=== PATIENT | female | born 1965 | race Caucasian/White ===

== ENCOUNTER 2020-07-24 00:54 | Outpatient (CLI) | payer BC, SELFPAY ==
[2020-07-24 18:47] LABS: SARS-CoV-2 RNA PCR Negative
== END 2020-07-24 00:55 | disposition home or self-care (01) ==
LOC: ANHCOVIDDT 00:55
PROVIDERS: PCP Internal Medicine; Visit Provider Internal Medicine Gastroenterology
DX: Z01.812 Encounter for preprocedural laboratory examination (principal); Z20.822 Contact with and (suspected) exposure to COVID-19
CPT/HCPCS: C9803; U0003; U0005

== ENCOUNTER 2020-07-28 02:13 | Day surgery (SDC) | payer BC, SELFPAY ==
[2020-07-22 15:28] VITALS: BMI 39.0
[2020-07-28 06:15] VITALS: BP 154/96; PULSE 100; RESP 20; TEMP 36; O2SAT 98; BMI 40.6
[2020-07-28] MEDS: LACTATED RINGERS 1,000 ML 150 ML IV CONT (06:35)
[2020-07-28 06:36] LABS: Glucose Point of Care 155 (65-105)
--- NOTE | 2020-07-28 07:16 | WPDANESEPPF ---
Anes - Initial Pre Proc Eval Procedure: Operation Date: 07/28/20 07:30 Proposed Procedures p Esophagogastroduodenoscopy & Colonoscopy - Mikel Armando MD Date/Time: 07/28/20 07:16 Surgeon: Mikel Armando MD Pre Op Diagnosis: iron deficiency anemia, nausea, vomiting Patient Data Age: 55 Gender: F Height: 5 ft 3 in Weight: 103.9 kg Last Vital Signs Temp 96.8 F L 07/28/20 06:15 Pulse 100 07/28/20 06:15 Resp 20 07/28/20 06:15 BP 154/96 H 07/28/20 06:15 Pulse Ox 98 07/28/20 06:15 Allergies Allergy/AdvReac Type Severity Reaction Status Date / Time No Known Allergies Allergy Unverified 07/28/20 06:15 Home Medications Medication Instructions Recorded Confirmed Type aripiprazole 2 mg PO DAILY 07/22/20 07/22/20 History atorvastatin 20 mg PO DAILY 07/22/20 07/22/20 History cyanocobalamin (vitamin B-12) 1,000 mcg IM [id number] 07/22/20 07/22/20 History estradiol-norethindrone acet 1 tablet PO DAILY 07/22/20 07/22/20 History [Amabelz] levothyroxine 150 mcg PO DAILY 07/22/20 07/22/20 History metformin 500 mg PO TID 07/22/20 07/22/20 History sodium,potassium,mag sulfates See Rx Instructions .ROUTE 07/22/20 Rx [Suprep Bowel Prep Kit] .COMPLEX #1 ml trazodone 100 mg PO DAILY 07/22/20 07/22/20 History venlafaxine 150 mg PO DAILY 07/22/20 07/22/20 History vortioxetine [Trintellix] 10 mg PO DAILY 07/22/20 07/22/20 History Laboratory Tests 07/28/20 06:33 POC Capillary Glucose 155 mg/dl H mg/dl (65-105) Patient hx anesthesia problems: none Family hx anesthesia problems: none PMFSH Past Medical History Medical History (Updated 07/28/20 @ 07:16 by Ole Bowers MD) Hyperlipidemia Hypothyroid Morbid obesity Social History Social History Smoking packs per day: 0.5 Smoking cigarettes per day: 10.0 Smoking status: Former smoker Tobacco type: cigarettes Alcohol intake: current Drinks per week: 1 Substance use: never Substance use type: does not use Living arrangements: with friend(s) Spiritual care concerns: No Anes - Eval Final PreProcedure Day of Procedure 07/28/20 07:16 Patient weight: morbidly obese Heart: regular rate and rhythm Lungs: clear to auscultation Airway: Mallampati scale class III Neurological: alert and oriented Last oral intake: >/= 8 hours ASA classification: III Emergent: no Anesthetic plan: proceed Anesthesia type and monitoring: general GIVS and standard monitoring Informed Consent: The patient's anesthetic plan and its attendant risks and benefits were discussed with the patient/family/POA. Questions were solicited and answers provided to the satisfaction of the patient/family/POA.
--- NOTE | 2020-07-28 07:29 | PM.HPGS ---
History of Present Illness History of Present Illness Consent: Risks, benefits, and alternatives have been discussed and questions answered. Patient agrees to proceed with procedure. Chief complaint: iron deficiency anemia, nausea, vomiting Narrative: Paradise Arrieta is a 55 year old female with nausea and vomiting, also anemia. Never had EGD, had colonoscopy about 2 years ago. Review of Systems Constitutional: Constitutional: Denies headache(s) and Denies weakness Eyes: Eyes: Denies blurry vision ENT: Reports Normal hearing present, Denies headache(s) and Denies neck pain Cardiovascular: Cardiovascular: Denies chest pain and Denies dyspnea Respiratory: Respiratory: Denies dyspnea Gastrointestinal: Gastrointestinal: Reports no additional gastrointestinal complaints Genitourinary: Genitourinary: Denies dysuria Musculoskeletal: Musculoskeletal: Denies neck pain Integumentary/Breasts: Skin/Breast: Denies dry skin Neurologic: Reports Normal hearing present, Denies headache(s) and Denies weakness Psychiatric: Psychiatric: Denies anxiety Endocrine: Endocrine: Denies change in body appearance Hematologic/Lymphatic: Hematologic/Lymphatic: Denies easy bleeding Allergic/Immunologic: Allergic/Immunologic: Denies urticaria PMFSH Past Medical History Medical History (Updated 07/28/20 @ 07:30 by Mikel Armando MD) Anemia Colon cancer screening Hyperlipidemia Hypothyroid Morbid obesity Nausea & vomiting Social History Social History Smoking packs per day: 0.5 Smoking cigarettes per day: 10.0 Smoking status: Former smoker Tobacco type: cigarettes Alcohol intake: current Drinks per week: 1 Substance use: never Substance use type: does not use Living arrangements: with friend(s) Spiritual care concerns: No Meds Home Medications and Allergies Home Medications Medication Instructions Recorded Confirmed Type aripiprazole 2 mg PO DAILY 07/22/20 07/22/20 History atorvastatin 20 mg PO DAILY 07/22/20 07/22/20 History cyanocobalamin (vitamin B-12) 1,000 mcg IM [id number] 07/22/20 07/22/20 History estradiol-norethindrone acet 1 tablet PO DAILY 07/22/20 07/22/20 History [Amabelz] levothyroxine 150 mcg PO DAILY 07/22/20 07/22/20 History metformin 500 mg PO TID 07/22/20 07/22/20 History sodium,potassium,mag sulfates See Rx Instructions .ROUTE 07/22/20 Rx [Suprep Bowel Prep Kit] .COMPLEX #1 ml trazodone 100 mg PO DAILY 07/22/20 07/22/20 History venlafaxine 150 mg PO DAILY 07/22/20 07/22/20 History vortioxetine [Trintellix] 10 mg PO DAILY 07/22/20 07/22/20 History Allergies Allergy/AdvReac Type Severity Reaction Status Date / Time No Known Allergies Allergy Unverified 07/28/20 06:15 Vital Signs Vital Signs - 24 hr 07/28/20 06:15 Temperature 96.8 F L Pulse Rate 100 Respiratory Rate 20 Blood Pressure 154/96 H Pulse Oximetry 98 Exam Const: General: comfortable and no acute distress HENMT: General nose exam: Normal nares present Eyes: General: appearance normal, both eyes and all related structures Neck: Neck: no JVD Resp: Auscultation: clear to auscultation bilaterally Cardio: Rate: regular rate Rhythm: regular rhythm GI: Inspection: non-distended GI Palp: Yes Soft to palpation Skin: General skin exam: normal color Neuro: General: gait normal Speech: normal speech Extrem: General: normal to inspection Psych: Mental Status: mental status grossly normal Assessment and Plan Assessment and plan (1) Nausea & vomiting: Code(s): R11.2 - Nausea with vomiting, unspecified Status: Acute Assessment and Plan: egd with bx (2) Anemia: Code(s): D64.9 - Anemia, unspecified Status: Acute (3) Colon cancer screening: Code(s): Z12.11 - Encounter for screening for malignant neoplasm of colon Status: Acute Assessment and Plan: proceed with colonoscopy
[2020-07-28] MEDS: BENZOCAINE (*SP) 60 ML SPRAY CAN (HURRICAINE) 1 SPRAY MUCOUS MEM (07:32)
[2020-07-28 08:02] VITALS: BP 115/52; PULSE 85; RESP 19; O2SAT 97
[2020-07-28 08:12] VITALS: BP 123/68; PULSE 78; RESP 19; O2SAT 96
[2020-07-28 08:22] VITALS: BP 127/81; PULSE 74; RESP 17; O2SAT 100
== END 2020-07-28 08:37 | disposition home or self-care (01) ==
PROVIDERS: PCP Internal Medicine; Visit Provider Internal Medicine Gastroenterology
PROC: 0DJ08ZZ Inspection of Upper Intestinal Tract, Via Natural or Artificial Opening Endoscopic (ICD-10-PCS; CPT 43235; principal; 2020-07-28 07:30)
DX: Z12.11 Encounter for screening for malignant neoplasm of colon (principal); D64.9 Anemia, unspecified; K57.30 Diverticulosis of large intestine without perforation or abscess without bleeding; K64.8 Other hemorrhoids; K29.50 Unspecified chronic gastritis without bleeding; E78.5 Hyperlipidemia, unspecified; E03.9 Hypothyroidism, unspecified; E66.01 Morbid (severe) obesity due to excess calories; Z68.41 Body mass index [BMI] 40.0-44.9, adult; Z87.891 Personal history of nicotine dependence
CPT/HCPCS: 45378; 43239; 88305; 88342; J2704; J7120

== ENCOUNTER 2020-09-15 11:45 | Outpatient (CLI) | payer BC, SELFPAY | END 2020-09-15 11:46 | disposition home or self-care (01) | LOC: ANHCOVIDVC 11:45 | PROVIDERS: PCP Internal Medicine | DX: Z23 Encounter for immunization (principal) | CPT/HCPCS: 0001A; 91300 ==

== ENCOUNTER 2020-10-06 11:38 | Outpatient (CLI) | payer BC, SELFPAY | END 2020-10-06 11:39 | disposition home or self-care (01) | LOC: ANHCOVIDVC 11:38 | PROVIDERS: PCP Internal Medicine | DX: Z23 Encounter for immunization (principal) | CPT/HCPCS: 0002A; 91300 ==

== ENCOUNTER 2021-12-01 21:39 | Emergency (ER) | payer BC, SELFPAY ==
[2021-12-01 21:40] VITALS: BP 157/102; PULSE 117; RESP 20; TEMP 35.7; O2SAT 96
--- NOTE | 2021-12-01 22:33 | ED.SKABFB ---
HPI - Skin/Abscess/Foreign Bdy General Chief complaint: Skin/Abscess/Foreign Body Stated complaint: rash Time Seen by Provider: 12/01/21 21:48 Source: patient Mode of arrival: ambulatory Limitations: no limitations History of Present Illness HPI narrative: This is a 56 year old female that presents to the ER for itchy rash present over the last couple of days. Reports she first noted an itchy rash in her groin. She then noted it under her breast and on her neck. She has been taking Benadryl with little relief. No known allergens or exposures. Denies fever. Related Data Home Medications Medication Instructions Recorded Confirmed aripiprazole 2 mg tablet 2 mg PO DAILY 07/22/20 07/22/20 atorvastatin 20 mg tablet 20 mg PO DAILY 07/22/20 07/22/20 cyanocobalamin (vitamin B-12) 1,000 mcg IM [id number] 07/22/20 07/22/20 1,000 mcg/mL injection solution estradiol-norethindrone acet 0.5 1 tablet PO DAILY 07/22/20 07/22/20 mg-0.1 mg tablet (Amabelz) levothyroxine 150 mcg tablet 150 mcg PO DAILY 07/22/20 07/22/20 metformin 500 mg tablet,extended 500 mg PO TID 07/22/20 07/22/20 release 24 hr trazodone 100 mg tablet 100 mg PO DAILY 07/22/20 07/22/20 venlafaxine 150 mg 150 mg PO DAILY 07/22/20 07/22/20 capsule,extended release 24 hr vortioxetine 10 mg tablet 10 mg PO DAILY 07/22/20 07/22/20 (Trintellix) Allergies Allergy/AdvReac Type Severity Reaction Status Date / Time No Known Allergies Allergy Unverified 07/28/20 06:15 Review of Systems Review of Systems: CONSTITUTIONAL: Denies fever GENITOURINARY: Denies dysuria SKIN: Denies rash and itching. All systems reviewed & are unremarkable except as noted in HPI and below PMFSH Past Medical History Medical History (Updated 12/01/21 @ 22:33 by Sheree Chávez PA-C) Anemia Colon cancer screening Hyperlipidemia Hypothyroid Morbid obesity Nausea & vomiting Social History Social History Smoking packs per day: 0.5 Smoking cigarettes per day: 10.0 Smoking status: Former smoker Tobacco type: cigarettes Alcohol intake: current Drinks per week: 1 Substance use: never Substance use type: does not use Spiritual care concerns: No Exam Narrative: GENERAL: Well-appearing, well-nourished, and in no acute distress. HEAD: Normocephalic, atraumatic. EYES: EOMI. EXTREMITIES: Normal range of motion. No edema. SKIN: Warm, dry. Moist area of redness with surrounding papules noted to the groin, under the breasts and on the neck NEURO: No focal deficits. Alert and oriented x3. PSYCH: Normal mood and affect Course Vital Signs Vital signs: Vital Signs Temperature 96.3 F L 12/01/21 21:40 Pulse Rate 117 H 12/01/21 21:40 Respiratory Rate 20 12/01/21 21:40 Blood Pressure 157/102 H 12/01/21 21:40 Pulse Oximetry 96 12/01/21 21:40 Temperature 96.3 F L 12/01/21 21:40 Pulse Rate 117 H 12/01/21 21:40 Respiratory Rate 20 12/01/21 21:40 Blood Pressure 157/102 H 12/01/21 21:40 Pulse Oximetry 96 12/01/21 21:40 MDM - Skin/Abscess/Foreign Bdy MDM Narrative Medical decision making narrative: Patient presents to the emergency department for a rash that appears consistent with likely yeast infection. Given dose of fluconazole in the ED. Will also be prescribed topical antifungal. Instructed on use of antihistamines for itching. She is to follow-up with her primary care doctor. She was given warnings to return to the ER Critical Care Time Critical Care Time Critical Care Time: No Discharge Plan Discharge Clinical Impression: Candidiasis Patient Disposition: Home, Self-Care Condition: Stable Instructions: Skin Yeast Infection (ED) Additional Instructions: Return to the ER if you experience fever, increasing redness and swelling of your wounds, abnormal drainage from your wounds, or any other symptoms that are concerning to you Apply clotrimazole as prescribed. Take a pepcid and claritin daily. Benadryl as ne
[2021-12-01] MEDS: hydrOXYzine HCL 25 MG TABLET PO (23:13)
[2021-12-01] MEDS: FAMOTIDINE 20 MG TABLET PO (23:14)
[2021-12-01] MEDS: FLUCONAZOLE 150 MG TABLET PO (23:14)
[2021-12-02 00:14] VITALS: BP 152/75; PULSE 98; RESP 18; O2SAT 97
== END 2021-12-02 00:16 | disposition home or self-care (01) ==
PROVIDERS: Emergency Provider Emergency Medicine; PCP Internal Medicine
DX: B37.2 Candidiasis of skin and nail (principal); E03.9 Hypothyroidism, unspecified; E78.5 Hyperlipidemia, unspecified; E66.01 Morbid (severe) obesity due to excess calories; Z68.39 Body mass index [BMI] 39.0-39.9, adult; Z86.2 Personal history of diseases of the blood and blood-forming organs and certain disorders involving the immune mechanism; Z79.84 Long term (current) use of oral hypoglycemic drugs; Z87.891 Personal history of nicotine dependence
CPT/HCPCS: 99283; A9270

== ENCOUNTER 2023-04-24 09:20 | Outpatient (CLI) | payer BC, SELFPAY ==
[2023-04-24 10:48] LABS: Alanine Aminotransferase 23 U/L (6-35); Aspartate Amino Transferase 35 U/L (14-36)
== END 2023-04-24 09:21 | disposition home or self-care (01) ==
PROVIDERS: PCP Internal Medicine; Visit Provider Podiatrist Foot & Ankle Surgery
DX: B35.1 Tinea unguium (principal)
CPT/HCPCS: 36415; 84450; 84460

== ENCOUNTER 2023-05-30 07:57 | Outpatient (CLI) | payer BC, SELFPAY ==
--- NOTE | ~2023-05-30 | XR_ITS ---
XR lumbar spine 2-3V 05/30/2023 08:22 Indication: Low back pain Procedure: 3 views lumbar spine Comparison: No prior studies for comparison. Findings: No fracture, subluxation or dislocation. Vertebral body heights are maintained. Mild disc n arrowing at L5-S1. No spondylolisthesis. There are cholecystectomy clips. Pedicles intact. Sacral for amen are symmetric. Impression: 1: Mild disc narrowing at L5-S1, consistent with degenerative disc disease. Reviewed, dictated and finalized at location B. /DC REWINDER Impression: 1: Mild disc narrowing at L5-S1, consistent with degenerative disc disease.
== END 2023-05-30 07:58 | disposition home or self-care (01) ==
PROVIDERS: PCP Internal Medicine; Visit Provider Internal Medicine
DX: M47.817 Spondylosis without myelopathy or radiculopathy, lumbosacral region (principal)
CPT/HCPCS: 72100

== ENCOUNTER 2023-08-14 09:30 | Outpatient (CLI) | payer BC, SELFPAY ==
[2023-08-14 10:18] LABS: Alanine Aminotransferase 20 U/L (6-35); Aspartate Amino Transferase 22 U/L (14-36)
== END 2023-08-14 09:31 | disposition home or self-care (01) ==
LOC: ANHLAB 09:32
PROVIDERS: PCP Internal Medicine; Visit Provider Podiatrist Foot & Ankle Surgery
DX: B35.1 Tinea unguium (principal)
CPT/HCPCS: 36415; 84450; 84460

== ENCOUNTER 2023-11-13 09:22 | Outpatient (CLI) | payer BC, SELFPAY ==
[2023-11-13 10:22] LABS: Alanine Aminotransferase 17 U/L (6-35); Aspartate Amino Transferase 19 U/L (14-36)
== END 2023-11-13 09:23 | disposition home or self-care (01) ==
LOC: ANHLAB 09:24
PROVIDERS: PCP Internal Medicine; Visit Provider Podiatrist Foot & Ankle Surgery
DX: B35.1 Tinea unguium (principal)
CPT/HCPCS: 36415; 84450; 84460

== ENCOUNTER 2024-02-12 09:29 | Outpatient (CLI) | payer BC, SELFPAY ==
[2024-02-12 10:55] LABS: Alanine Aminotransferase 19 U/L (6-35); Aspartate Amino Transferase 18 U/L (14-36)
== END 2024-02-12 09:30 | disposition home or self-care (01) ==
LOC: ANHLAB 09:34
PROVIDERS: PCP Internal Medicine; Visit Provider Podiatrist Foot & Ankle Surgery
DX: B35.1 Tinea unguium (principal)
CPT/HCPCS: 36415; 84450; 84460

== ENCOUNTER 2024-05-14 09:34 | Outpatient (CLI) | payer BC, SELFPAY ==
[2024-05-14 12:34] LABS: Alanine Aminotransferase 20 U/L (6-35); Aspartate Amino Transferase 20 U/L (14-36)
== END 2024-05-14 09:35 | disposition home or self-care (01) ==
LOC: ANHLAB 09:35
PROVIDERS: PCP Internal Medicine; Visit Provider Podiatrist Foot & Ankle Surgery
DX: B35.1 Tinea unguium (principal)
CPT/HCPCS: 36415; 84450; 84460

== ENCOUNTER 2025-04-16 08:16 | Emergency (ER) | payer BC, SELFPAY ==
--- NOTE | ~2025-04-16 | CT_ITS ---
EXAMINATION: CT lumbar spine wo con COMPARISON: None HISTORY: pain TECHNIQUE: Axial images were obtained through the spine without IV contrast. Coronal, sagittal reconstruction images were obtained from the axial views. CT scan performed using dose optimization techniques including the following automated exposure control; adjustment of mA and/or kV; use of iterative reconstruction technique. Automatic exposure control was used to reduce radiation dose. Permanent radiation dose record is archived to PACS. FINDINGS: The vertebral heights are intact. No fracture or subluxation. The disc heights are intact. There is a large left adrenal lesion noted in the soft tissues measuring 2.6 x 2.5 cm Hounsfield units 1.0 possible benign adrenal adenoma. Impression: No acute abnormality. Reviewed, dictated and finalized at location P. Impression: No acute abnormality.
--- NOTE | ~2025-04-16 | XR_ITS ---
EXAMINATION: XR hip RT 2V w AP pelvis, 04/16/2025 11:50 CDT HISTORY: pain COMPARISON: No comparisons available. Findings: No acute fracture or malalignment. No significant degenerative changes. Soft tissues unremarkable. Impression: No acute fracture or malalignment. Reviewed, dictated and finalized at location P. Impression: No acute fracture or malalignment.
[2025-04-16 08:20] VITALS: BP 145/60; PULSE 95; RESP 18; TEMP 37; O2SAT 100
[2025-04-16 10:37] VITALS: BP 139/71; PULSE 85; RESP 16; TEMP 35.7; O2SAT 98
--- NOTE | 2025-04-16 11:47 | ED.GENADULT ---
HPI - General Adult General Chief complaint: Back Pain/Injury Stated complaint: back pain Time Seen by Provider: 04/16/25 11:24 History of Present Illness HPI narrative: Paradise Arrieta is a 59 year female who presents today with complaints of having right lower back pain that started 3 days ago. She states that she was attempting to get dressed and came up quickly from bending forward and did had sudden severe right lower back pain at that time. She states that since she has had that pain it has just continued and has been sore. She has been trying to take Tylenol ibuprofen at home without much relief. She states that the pain was worse at the end does show time when she felt the pain at movements and it is not quite as bad it is still there. She states the pain wraps around a little bit into her hip denies radiation down her legs. She denies numbness or tingling to her legs. No saddle paresthesia. No loss of bowel bladder. She denies urinary symptoms. No fevers or chills, no rash no falls no severe trauma. Related Data Home Medications ?Medication ?Instructions ?Recorded ?Confirmed ?Last Taken ?Type aripiprazole 2 mg tablet 2 mg PO DAILY 07/22/20 07/22/20 07/25/20 14:00 History atorvastatin 20 mg tablet 20 mg PO DAILY 07/22/20 07/22/20 07/25/20 14:00 History cyanocobalamin (vitamin B-12) 1,000 mcg IM [id number] 07/22/20 07/22/20 07/25/20 14:00 History 1,000 mcg/mL injection solution estradiol-norethindrone acet 0.5 1 tablet PO DAILY 07/22/20 07/22/20 07/25/20 14:00 History mg-0.1 mg tablet (Amabelz) levothyroxine 150 mcg tablet 150 mcg PO DAILY 07/22/20 07/22/20 07/25/20 14:00 History metformin 500 mg tablet,extended 500 mg PO TID 07/22/20 07/22/20 07/25/20 14:00 History release 24 hr trazodone 100 mg tablet 100 mg PO DAILY 07/22/20 07/22/20 07/25/20 14:00 History venlafaxine 150 mg 150 mg PO DAILY 07/22/20 07/22/2021 14:00 History capsule,extended release 24 hr vortioxetine 10 mg tablet 10 mg PO DAILY 07/22/20 07/22/20 07/25/20 14:00 History (Trintellix) Allergies Allergy/AdvReac Type Severity Reaction Status Date / Time No Known Allergies Allergy Verified 04/16/25 08:23 Review of Systems Review of Systems: All systems reviewed & are unremarkable except as noted in HPI and below PMFSH Past Medical History Medical History Colon cancer screening Anemia Nausea & vomiting Morbid obesity Hypothyroid Hyperlipidemia Social History Social History Smoking packs per day: 0.5 Smoking cigarettes per day: 10.0 Smoking status: Former smoker Tobacco type: cigarettes Alcohol intake: current Drinks per week: 1 Substance use: never Substance use type: does not use Living arrangements: with friend(s) Spiritual care concerns: No Exam Narrative: GENERAL: Well-appearing, well-nourished, and in no acute distress. HEAD: Normocephalic, atraumatic. EYES: PERRLA and EOMI. ENT: Nares clear, no rhinorrhea or epistaxis. Mucous membranes moist. Oropharynx without tonsillar hypertrophy exudate or other lesions. NECK: Supple. No adenopathy or masses. No carotid bruits or JVD CHEST: Clear to auscultation. No respiratory distress. No wheezes rales or rhonchi HEART: Regular rate and rhythm. No murmur heard. Normal peripheral pulses. ABDOMEN: Soft, nontender, nondistended, normal active bowel sounds. EXTREMITIES: Normal range of motion. No edema. SKIN: Warm, dry, no rash. NEURO: No focal deficits. Alert and oriented x3. PSYCH: Normal mood and affect. Course Vital Signs Vital signs: Vital Signs Temperature 37.0 C 04/16/25 08:20 Pulse Rate 95 04/16/25 08:20 Respiratory Rate 18 04/16/25 08:20 Blood Pressure 145/60 H 04/16/25 08:20 Pulse Oximetry 100 04/16/25 08:20 Oxygen Delivery Room Air 04/16/25 08:20 Temperature 35.7 C L 04/16/25 10:37 Pulse Rate 85 04/16/25 10:37 Respiratory Rate 16 04/16/25 10:37 Blood Pressure 139/71 04/16/25 10:37 Pulse Oximetry 98 04/16/25 10:37 Oxygen Delivery Room Air 04/16/25 08:20 Medical Decision Making MDM Narrative Medical decision making narrative: 51-year-old female who presents with complaints of having right lower back pain that started 3 days ago she contributes this pain to calling up quickly while trying to get dressed after being bent forward that is when she felt the pain initially. She feels the pain now is worse with movement. No saddle paresthesia, no loss of bowel or bladder, no severe trauma no falls no fevers no chills. Patient has been taking Tylenol Motrin with minimal relief states the pain is not quite as bad as when it 1st started 3 days ago but it does feel sore to the area. Lung sounds clear throughout patient appears well there is the lidocaine patch across where her pain is to the lower back below the CVA area. Imaging is negative for any acute findings patient re-evaluated states that her pain is much better she feels comfortable going home I discussed her urinalysis findings and concern for infection she states that she does have some urinary frequency I will go ahead start treatment with cephalexin 3 times a day for 5 days Keep her on a cyclobenzaprine, naproxen and lidocaine patches for her pain. Close follow-up with primary care doctor's encouraged with strict return precautions. Patient feels comfortable with this plan denies any further at this time. Medical Records Medical records reviewed: Yes I reviewed the external patient's medical records. Vital Signs Vital Signs: Vital Signs Temperature 37.0 C 04/16/25 08:20 Pulse Rate 95 04/16/25 08:20 Respiratory Rate 18 04/16/25 08:20 Blood Pressure 145/60 H 04/16/25 08:20 Pulse Oximetry 100 04/16/25 08:20 Oxygen Delivery Room Air 04/16/25 08:20 Temperature 35.7 C L 04/16/25 10:37 Pulse Rate 85 04/16/25 10:37 Respiratory Rate 16 04/16/25 10:37 Blood Pressure 139/71 04/16/25 10:37 Pulse Oximetry 98 04/16/25 10:37 Oxygen Delivery Room Air 04/16/25 08:20 Vitals reviewed Lab Data Lab results reviewed: Yes I reviewed the patient's lab results. Labs: Lab Results 04/16/25 Range/Units 12:06 Urine Color Yellow (Yellow) Urine Appearance Turbid H (Clear) Urine pH 5.0 (5.0-9.0) Ur Specific Bucks 1.044 H (1.001-1.035) Urine Protein Trace (Negative) mg/dL Urine Glucose (UA) Negative (Negative) mg/dL Urine Ketones Trace H (Negative) mg/dL Ur Blood (Man) Negative (Negative) Urine Nitrate Negative (Negative) Urine Bilirubin Negative (Negative) Urine Urobilinogen 1.0 (<2.0) mg/dL Add Ur Microanalysis Reviewed Leukocyte Esterase Rfl Negative (Negative) YASMEEN/UL Urine RBC 3-5 H (0-2) /hpf Urine WBC 21-50 H (0-3) /hpf Ur Squamous Epith Cells Many H (Few) /hpf Urine Bacteria 4+ H /hpf Urine Casts 3-5 Imaging Data Radiologist's impression: Impressions Hip/Pelvis X-Ray 04/16/25 12:08 Impression: No acute fracture or malalignment. Lumbar Spine CT 04/16/25 12:09 Impression: No acute abnormality. Discharge Plan Discharge Clinical Impression: Lumbar strain Qualifiers: Encounter type: initial encounter Qualified Code(s): S39.012A - Strain of muscle, fascia and tendon of lower back, initial encounter Sciatica Qualifiers: Laterality: right Qualified Code(s): M54.31 - Sciatica, right side UTI (urinary tract infection) Qualifiers: Urinary tract infection type: acute cystitis Hematuria presence: with hematuria Qualified Code(s): N30.01 - Acute cystitis with hematuria Patient Disposition: Home Condition: Stable Instructions: Antibiotic Form, Urinary Tract Infection in Women (DC), Acute Low Back Pain (ED) Additional Instructions: Continue to take the cyclobenzaprine up to 3 times a day for muscle spasm pain this may make you feel sleepy so you may want to reserve her bedtime do not drive or operate machinery while taking this medication Continue to take the naproxen twice daily for the pain Continue to use the lidocaine patches area having the pain Based on your urine findings we are going to start you on cephalexin 3 times a day for 5 days for urinary tract infection Please call the follow-up with your primary care doctor in the next week to ensure your symptoms are improving If he should develop any new or worsening symptoms as always return to the emergency department. Patient Language: Mozamb[place] Prescriptions: New cyclobenzaprine 5 mg tablet 5 mg PO TID PRN (Reason: muscle spasm) Qty: 30 0RF cephalexin 500 mg capsule 500 mg PO Q8H 5 Days Qty: 15 0RF naproxen 375 mg tablet 375 mg PO BID PRN (Reason: pain) Qty: 14 0RF No Action Suprep Bowel Prep Kit 17.5-3.13-1.6 gram Recon Soln See Rx Instructions .ROUTE .COMPLEX Qty: 1 0RF Rx Instructions: DILUTE; drink full amount early evening before AND next morning at least 2 hr before procedure; follow w 960 mL water atorvastatin 20 mg tablet 20 mg PO DAILY venlafaxine 150 mg capsule,extended release 24hr 150 mg PO DAILY trazodone 100 mg tablet 100 mg PO DAILY cyanocobalamin (vitamin B-12) 1,000 mcg/mL solution 1,000 mcg IM [id number] levothyroxine 150 mcg tablet 150 mcg PO DAILY metformin 500 mg tablet extended release 24 hr 500 mg PO TID aripiprazole 2 mg tablet 2 mg PO DAILY estradiol-norethindrone acet [Amabelz] 0.5-0.1 mg tablet 1 tablet PO DAILY Trintellix 10 mg tablet 10 mg PO DAILY clotrimazole 1 % cream 1 applic topical BID 14 Days Qty: 45 0RF omeprazole 40 mg capsule,delayed release(DR/EC) 40 mg PO DAILY Qty: 30 2RF Follow-up/Referrals: Lico,Justin Araya MD [Primary Care Provider] - 1 Week Time of Disposition: 13:43
[2025-04-16] MEDS: CYCLOBENZAPRINE HCL 10 MG TABLET PO (12:02)
[2025-04-16] MEDS: KETOROLAC 30 MG/ML VIAL (*BKC) IM (12:03)
[2025-04-16 12:24] LABS: Add Urine Microscopic? YES; Appearance Urine Turbid (Clear); Glucose Urine UA Negative (Negative); Leukocyte Esterase Ur Negative LEU/UL (Negative); Need Manual Microscopic Reviewed; Nitrate Urine Negative (Negative); Specific Grav Ur 1.044 (1.001-1.035)
== END 2025-04-16 13:57 | disposition home or self-care (01) ==
PROVIDERS: Emergency Provider Nurse Practitioner Family; PCP Internal Medicine
DX: S39.012A Strain of muscle, fascia and tendon of lower back, initial encounter (principal); N30.01 Acute cystitis with hematuria; E03.9 Hypothyroidism, unspecified; E78.5 Hyperlipidemia, unspecified; Z87.891 Personal history of nicotine dependence; Z79.899 Other long term (current) drug therapy; X50.9XXA Other and unspecified overexertion or strenuous movements or postures, initial encounter
CPT/HCPCS: 72131; 73502; 81001; 96372; 99284; A9270; J1885